=== PATIENT | male | born 1995 | race Caucasian/White ===

== ENCOUNTER 2019-09-14 10:12 | Emergency (ER) | payer OTHER ==
[~2019-09-14] VITALS: Ht 162.6 cm; Wt 72.6 kg
[2019-09-14 10:46] LABS: INFLUENZA A ANTIGEN Negative (Negative); INFLUENZA B ANTIGEN Negative (Negative)
[2019-09-14] MEDS ORDERED: IBU600 MG PO (10:53)
[2019-09-14 11:12] VITALS: BP 111/87
[2019-09-15] MEDS ORDERED: MEDROLDOSEPACK PO (21:17)
[2019-09-15] MEDS ORDERED: KEFLEX500 M1 PO (21:17)
[2019-09-15] MEDS ORDERED: LIDOCAINE VISC100 ML SW&SWALLOW (21:17)
== END 2019-09-14 11:12 | disposition home or self-care (01) ==
LOC: M.ERS 10:12
PROVIDERS: Physician Assistant
DX: J02.0 Streptococcal pharyngitis (principal)

== ENCOUNTER 2019-09-15 20:33 | Emergency (ER) | payer OTHER ==
[~2019-09-15] VITALS: Ht 162.6 cm; Wt 75.3 kg
[~2019-09-15 20:33] MED LIST: IBU600 MG PO
[2019-09-15] MEDS ORDERED: KEFLEX500 M1 PO (21:17)
[2019-09-15] MEDS ORDERED: LIDOCAINE VISC100 ML SW&SWALLOW (21:17)
[2019-09-15] MEDS ORDERED: MEDROLDOSEPACK PO (21:17)
[2019-09-15 21:32] VITALS: BP 119/79
== END 2019-09-15 21:33 | disposition home or self-care (01) ==
LOC: M.ERS 20:33
DX: J03.00 Acute streptococcal tonsillitis, unspecified (principal)